=== PATIENT | male | born 1990 | race Caucasian/White ===

== ENCOUNTER 2018-04-22 02:15 | Emergency (ER) | payer OTHER ==
[~2018-04-22] VITALS: Ht 193 cm; Wt 90.0 kg
[~2018-04-22 02:15] MED LIST: CYCL-120 PO; NAPR-56 PO
[2018-04-22 04:29] VITALS: BP 130/89
== END 2018-04-22 04:31 | disposition home or self-care (01) ==
LOC: ER 02:16
DX: Z77.21 Contact with and (suspected) exposure to potentially hazardous body fluids (principal); Z79.899 Other long term (current) drug therapy
CPT/HCPCS: 99281

== ENCOUNTER 2022-12-12 14:22 | Emergency (ER) | payer BC, OTHER ==
[~2022-12-12] VITALS: Ht 193 cm; Wt 95.5 kg
[2022-12-12 14:28] VITALS: BP 112/85
[2022-12-12] MEDS ORDERED: BUPR100T5 PO (14:46)
== END 2022-12-12 15:24 | disposition home or self-care (01) ==
LOC: ER 14:22 → EEVIPCON 14:22 → ER 15:24
DX: F32.9 Major depressive disorder, single episode, unspecified (principal); F41.9 Anxiety disorder, unspecified; Z79.899 Other long term (current) drug therapy
CPT/HCPCS: 99284

== ENCOUNTER 2023-04-22 08:36 | Emergency (ER) | payer BC, OTHER ==
[~2023-04-22] VITALS: Ht 193 cm; Wt 95.5 kg
[~2023-04-22 08:36] MED LIST changes: +BUPR100T5 PO
[2023-04-22 08:42] VITALS: BP 150/92
[2023-04-22] MEDS ORDERED: LIDOcaine 5% patch TP STA (09:09)
[2023-04-22] MEDS ORDERED: ketorolac trometh inj. 60 MG/2 ML VIAL IM ONE (09:10)
[2023-04-22] MEDS ORDERED: cyclobenzaprine 10mg tablet PO ONE (09:10)
[2023-04-22] MEDS ORDERED: IBUP-1986 PO (09:38)
[2023-04-22] MEDS ORDERED: LIDO-15 TP (09:38)
[2023-04-22] MEDS ORDERED: CYCL-1 PO (09:38)
== END 2023-04-22 10:00 | disposition home or self-care (01) ==
LOC: ER 08:36
DX: S39.012A Strain of muscle, fascia and tendon of lower back, initial encounter (principal); Z79.899 Other long term (current) drug therapy; X58.XXXA Exposure to other specified factors, initial encounter; Y93.89 Activity, other specified; Y92.89 Other specified places as the place of occurrence of the external cause; Y99.8 Other external cause status
CPT/HCPCS: 96372; 99283; J1885